=== PATIENT | female | born 1990 | race Caucasian/White ===

== ENCOUNTER 2016-11-21 05:02 | Inpatient (IN) | payer MEDICAID ==
[~2016-11-21] VITALS: Ht 170.2 cm; Wt 70.5 kg
[~2016-11-21 05:02] MED LIST: IBUP-1223 PO; OXYC-302 PO
[2016-11-21] MEDS ORDERED: OXYTOCIN 30U/ 0.9% NaCL 500ML 500 ML IV ONE (05:08)
[2016-11-21] MEDS ORDERED: OXYTOCIN 30U/ 0.9% NaCL 500ML 500 ML IV PRN (05:08)
[2016-11-21] MEDS: D5%-LACTATED RINGERS 1,000 ML IV SCH ×3 (05:08→21:08)
[2016-11-21 05:10] VITALS: BP 119/71
[2016-11-21] MEDS ORDERED: NEWBORN KIT ONE (05:12)
[2016-11-21] MEDS: LACTATED RINGERS 1,000 ML IV SCH ×4 (05:20→22:22)
[2016-11-21] MEDS ORDERED: ONDANSETRON 2MG/ML, 2ML IVPush PRN (05:30)
[2016-11-21] MEDS ORDERED: CALCIUM CARBONATE 500 MG TAB.CHEW PO PRN (05:30)
[2016-11-21] MEDS ORDERED: FENTANYL PF 100 MCG/2ML IV PRN (05:30)
[2016-11-21] MEDS ORDERED: TERBUTALINE 1 MG/ML, 1ML IVPush PRN (05:30)
[2016-11-21] MEDS ORDERED: FENTANYL PF 100 MCG/2ML IVPush PRN (05:30)
[2016-11-21 05:47] LABS: HEMATOCRIT 37.1 % (34.6-47.8); HEMOGLOBIN 12.4 g/dL (11.7-16.4); WHITE BLOOD COUNT 9.6 x10^3/uL (3.4-10)
[2016-11-21] MEDS ORDERED: PREN1TAB60 PO (07:43)
[2016-11-21] MEDS ORDERED: BUPIVACAINE 0.25% ONE (20:45)
[2016-11-21] MEDS ORDERED: FENTANYL/BUPIV./NS/PF 250 ML EPIDCONT ONE (20:45)
[2016-11-21] MEDS ORDERED: FENTANYL PF 100 MCG/2ML ONE (20:45)
[2016-11-21] MEDS ORDERED: LIDOCAINE/PF 1.5%-EPI 1:200K, 30ML ONE (20:52)
[2016-11-21] MEDS ORDERED: FENTANYL/BUPIV./NS/PF 250 ML EPIDCONT SCH (21:21)
[2016-11-21] MEDS ORDERED: LACTATED RINGERS 1,000 ML IVBOLUS PRN (21:30)
[2016-11-22] MEDS ORDERED: MISOPROSTOL 200 MCG TABLET ONE (01:04)
[2016-11-22] MEDS ORDERED: OXYTOCIN 30U/ 0.9% NaCL 500ML 500 ML ONE ×2 (01:05→03:26)
[2016-11-22] MEDS ORDERED: OXYTOCIN 30U/ 0.9% NaCL 500ML 500 ML IV SCH (01:29)
[2016-11-22] MEDS ORDERED: MISOPROSTOL 200 MCG TABLET PR PRN (01:30)
[2016-11-22] MEDS ORDERED: DIPH,PERTUSS(ACELL),TET VAC/PF NC IM-VACC PRN (01:30)
[2016-11-22] MEDS ORDERED: OXYcodone/APAP 5/325MG TABLET PO PRN ×2 (01:30)
[2016-11-22] MEDS ORDERED: CARBOPROST TROMETHAMINE 250 MCG/ML, 1ML IM PRN (01:30)
[2016-11-22] MEDS ORDERED: CALCIUM CARBONATE 500 MG TAB.CHEW PO PRN (01:30)
[2016-11-22] MEDS ORDERED: MAGNESIUM HYDROXIDE 8%, 30ML UDC PO PRN (01:30)
[2016-11-22] MEDS ORDERED: ONDANSETRON 2MG/ML, 2ML IV PRN (01:30)
[2016-11-22] MEDS ORDERED: METHYLERGONOVINE 0.2 MG/ML IM PRN (01:30)
[2016-11-22] MEDS ORDERED: ACETAMINOPHEN 325 MG TABLET PO PRN ×3 (01:30)
[2016-11-22] MEDS: IBUPROFEN 600 MG TABLET PO PRN ×2 (01:41→08:17)
[2016-11-22] MEDS ORDERED: IBUPROFEN 600 MG TABLET ONE (01:41)
[2016-11-22] MEDS: LACTATED RINGERS 1,000 ML IV SCH (01:42)
[2016-11-22] MEDS ORDERED: METHYLERGONOVINE 0.2 MG/ML IM ONE (01:47)
[2016-11-22 03:50] VITALS: BP 113/69
[2016-11-22 07:45] VITALS: BP 109/64
[2016-11-22] MEDS: DOCUSATE 100 MG CAPSULE PO PRN (08:17)
[2016-11-22] MEDS: PRENATAL VIT/IRON/FA 1 EACH TABLET PO SCH (08:17)
[2016-11-22 09:47] LABS: HEMATOCRIT 34.2 % (34.6-47.8); HEMOGLOBIN 11.4 g/dL (11.7-16.4); WHITE BLOOD COUNT 12.2 x10^3/uL (3.4-10)
[2016-11-22 19:15] VITALS: BP 113/71
[2016-11-23 08:00] VITALS: BP 112/68
[2016-11-23] MEDS: DOCUSATE 100 MG CAPSULE PO PRN (08:34)
[2016-11-23] MEDS: PRENATAL VIT/IRON/FA 1 EACH TABLET PO SCH (08:34)
[2016-11-23] MEDS ORDERED: OXYC-302 PO (09:15)
[2016-11-23] MEDS ORDERED: IBUP-1223 PO (09:16)
== END 2016-11-23 10:48 | disposition home or self-care (01) | DRG 775 ==
LOC: LDIP 05:02 → 2NW 11-22 03:38
PROVIDERS: ADMIT Obstetrics & Gynecology; ATTEND Obstetrics & Gynecology
PROC: 10E0XZZ Delivery of Products of Conception, External Approach (ICD-10-PCS; principal; 2016-11-21)
PROC: 10907ZC Drainage of Amniotic Fluid, Therapeutic from Products of Conception, Via Natural or Artificial Opening (ICD-10-PCS; 2016-11-21)
PROC: 3E0S3CZ (ICD-10-PCS; 2016-11-21)
PROC: 00HU33Z Insertion of Infusion Device into Spinal Canal, Percutaneous Approach (ICD-10-PCS; 2016-11-21)
DX: O80 Encounter for full-term uncomplicated delivery (principal); Z88.0 Allergy status to penicillin; Z37.0 Single live birth; Z3A.40 40 weeks gestation of pregnancy
CPT/HCPCS: 36415; 85025; 86850; 86900; J3010; J3490; J2590; J7120

== ENCOUNTER 2018-03-16 19:08 | Emergency (ER) | payer MEDICAID, OTHER ==
[~2018-03-16] VITALS: Ht 172.7 cm; Wt 65.0 kg
[~2018-03-16 19:08] MED LIST changes: +PREN1TAB60 PO
[2018-03-16 19:10] VITALS: BP 131/70
--- NOTE | 2018-03-16 19:31 | NUR ---
RAD COMPLETED, PT IN ROOM. AWAITING RESULTS AND RECHECK AT THIS TIME
== END 2018-03-16 21:08 | disposition home or self-care (01) ==
LOC: ED 20:40
DX: S93.621A Sprain of tarsometatarsal ligament of right foot, initial encounter (principal); Z88.0 Allergy status to penicillin; X50.1XXA Overexertion from prolonged static or awkward postures, initial encounter; Y93.89 Activity, other specified; Y92.099 Unspecified place in other non-institutional residence as the place of occurrence of the external cause; Y99.8 Other external cause status
CPT/HCPCS: 99283